=== PATIENT | female | born 1940 | race Caucasian/White ===

== ENCOUNTER 2020-10-29 17:01 | Observation (INO) ==
[2020-10-29] MEDS ORDERED: OPTIRAY 320 125ml IV ONE (17:19)
--- NOTE | 2020-10-29 17:32 | CT Scan Report ---
CT SCAN OF THE BRAIN WITHOUT IV CONTRAST CLINICAL HISTORY: Strokelike symptoms. COMPARISON STUDY: No priors. TECHNIQUE: Unenhanced axial CT scan of the brain is performed from the vertex to the skull base. A do se lowering technique was utilized adhering to the principles of ALARA. FINDINGS: Brain parenchyma: There is age-related involutional change. There is no hemorrhage, mass effect, or e vidence of acute territorial ischemia by CT criteria. Olson-white matter differentiation is preserved. No extra-axial fluid collection is seen. Ventricles, sulci, cisterns: Prominent secondary to involutional change. Intracranial vasculature: There is atherosclerotic calcification of the cavernous carotid arteries. Calvarium: Unremarkable. Sinuses and mastoids: The visualized paranasal sinuses are clear. The mastoid air cells are well pneu matized. Orbits: The bony orbits are grossly intact. IMPRESSION: There is no hemorrhage, mass effect, or evidence of acute territorial ischemia by CT delfino toledo. ACT 112: Negative or not required by law. Electronically signed by: Ian Simmons M.D. 10/29/2020 5:31 PM
[2020-10-29 17:33] LABS: Basophils # (auto) 0.03 K/uL (0-0.2); Basophils % (auto) 0.5 %; Eosinophils # (auto) 0.08 K/uL (0-0.5); Eosinophils % (auto) 1.3 %; Hemoglobin 13.2 g/dL (12.0-16.0); Lymphocytes % (auto) 41.5 %; Mean Corpuscular Hemoglobin 31.3 pg (25-34); Mean Corpuscular Volume 94.8 fL (80-100); Mean Platelet Volume 9.8 fL (7.4-10.4); Monocytes # (auto) 0.69 K/uL (0.11-0.59); Neutrophils # (auto) 2.86 K/uL (1.4-6.5); Neutrophils % (auto) 45.7 %; Platelet Count 258 K/uL (130-400); RDW Coefficient of Variation 12.5 % (11.5-14.5); RDW Standard Deviation 42.9 fL (36.4-46.3); Red Blood Count 4.22 M/uL (4.2-5.4); White Blood Count 6.26 K/uL (4.8-10.8)
--- NOTE | 2020-10-29 17:38 | Emergency Department Note ---
Impression & Plan TIA (transient ischemic attack) ED Provider Note NAME: LILIYA VIDAL AGE: 80 SEX: F : 1940 ARRIVES VIA: Walk-In INFORMANT: Patient, the patient's daughter ED PROVIDER(S): Simon Gooden DO CHIEF COMPLAINT: Strokelike symptoms HPI: The patient is an 80-year-old female who presented to the emergency department by triage for an evaluation of strokelike symptoms. The patient was on the phone with a business call earlier today. She states at approximately 3 15-3 30 she started having symptoms of confusion. She states she was having difficulty remembering things that she would normally remember. She had difficulty speaking. She presented to the emergency department with her daughter who states that she still has symptoms but the patient herself states that she feels much better. The patient denies having any headache. She denies having any nausea or vomiting. She denies having any recent trauma. The goran ent has had no recent traveling or fever. She states she was not necessarily under any significant stress. The patient states she had one episode similar to this with an eye issue where she felt like a curtain was coming down over her eye. She states she went to see an eye doctor and was told she may have had a slight stroke. ROS: See above HPI for pertinent positives & negatives. A total of 10 systems reviewed and were otherwise negative. PAST MEDICAL HISTORY: See Below PAST SURGICAL HISTORY: See Below FAMILY HISTORY: See Below SOCIAL HISTORY: See Below HOME MEDICATIONS: See Below ALLERGIES: See Below VITALS: See Below PHYSICAL EXAMINATION: GENERAL: The patient is awake and alert. The patient is somewhat anxious appearing. EYES: The conjunctivae are clear. The pupils are round and reactive. EARS, NOSE, MOUTH AND THROAT: The nose is without any evidence of any deformity. NECK: The neck is nontender and supple. RESPIRATORY: Normal respiratory effort is noted there is no evidence of wheezing rhonchi or rales CARDIOVASCULAR: Regular rate and rhythm noted there no murmurs rubs or gallops normal S1 normal S2. GASTROINTESTINAL: The abdomen is soft. Abdomen is nontender. MUSCULOSKELETAL/EXTREMITIES: There is no evidence of gross deformity full range of motion is noted in the hips and shoulders. SKIN: There is no obvious evidence of any rash. There are no petechiae, pallor or cyanosis noted. NEUROLOGIC: Patient is awake and oriented to person place and situation. Strength was symmetric. Automation Qtp Tester strength was symmetric. There is no facial droop. The patient is able to hold each leg off the bed for greater than 5 seconds. MEDICAL DECISION MAKING: The patient is an 80-year-old female who presented to the emergency department for an evaluation of altered mental status and possible strokelike symptoms. The patient's symptoms rapidly improved while she was in the emergency department. She was made a stroke alert upon arrival but I did not discuss her case with the telestroke neurologist. The patient's symptoms rapidly improved and she did not appear to be a candidate for TPA. She also was not found to have a large vessel occlusion. I discussed the patient's laboratory and radiographic studies with her. Her symptom is more worrisome for possible strokelike symptoms. For this reason I discussed her case with the on-call [facility] hospitalist. They have agreed to evaluate the patient in the emergency department for further management and disposition. Triage Nursing notes reviewed. Prior medical records reviewed Vital Signs: reviewed and remarkable for hypertension. Differential diagnosis: Infection, hypoglycemia, electrolyte abnormalities, overdose, toxicologic, cardiac sources, intracerebral event, neurologic, trauma, as well as other pathologies. ER treatment provided: See below Diagnostics interpreted by me: ECG: EKG was obtained in the emergency department. My interpretation is normal sinus rhythm at 80 bpm. There was no ectopy. There was no acute ST segment abnormalities noted. No previous tracing was available. Cardiac Monitoring: An order was placed for continuous cardiac monitoring. The monitor shows a rate of 72 bpm with sinus rhythm. Laboratory studies: As stated above and show below. Imaging studies: See below Consultation(s): I discussed this case with Dr. Gatica who is on-call for the [facility]. They will evaluate the patient in the emergency department. Past Med/Surg History Medical History History of depression History of hypertension Hx of gastroesophageal reflux (GERD) Prediabetes PVC (premature ventricular contraction) Surgical History History of hysterectomy History of knee surgery S/P tonsillectomy Family History Mother , age 71 of congestive heart failure. CHF (congestive heart failure) Father , in early 80s of Parkinson's disease Primary Parkinson's disease Social History Smoking Status: Never smoker Hx Alcohol Use: No Hx Substance Use: No Preferred Language: [place] Communication Ability: Effective Pediatric Nurse Required: No Beliefs That Will Affect Care: None Current Living Situation: Personal Care Facility Current Living Situation Comment: Independent living facility Feels Safe at Home: Yes Assistive Devices: Glasses and Hearing Aid - Bilateral Allergies Allergies Allergy/AdvReac Type Severity Reaction Status Date / Time clindamycin Allergy Severe Gastrointestinal Verified 10/29/20 17:48 Upset erythromycin base Allergy Severe Gastrointestinal Verified 10/29/20 17:48 Upset Home Meds Home Medications Medication Instructions Recorded Confirmed acyclovir 400 mg tablet 400 mg PO DAILY PRN 10/29/20 10/29/20 amoxicillin 500 mg capsule 2,000 mg PO DAILY PRN 10/29/20 10/29/20 ascorbic acid (vitamin C) 1,000 mg 1,000 mg PO DAILY 10/29/20 10/29/20 tablet,extended release (Vitamin C ER) bupropion HCl 100 mg tablet 50 mg PO DAILY 10/29/20 10/29/20 calcium carbonate-vitamin D3 600 1 tab PO DAILY 10/29/20 10/29/20 mg-125 unit tablet cholecalciferol (vitamin D3) 50 50 mcg PO DAILY 10/29/20 10/29/20 mcg (2,000 unit) capsule (Vitamin D3) denosumab 60 mg/mL subcutaneous 60 mg SUBCUT .EVERY 6 MONTHS 10/29/20 10/29/20 syringe (Prolia) famotidine 20 mg tablet 20 mg PO BID 10/29/20 10/29/20 fluticasone propionate 50 2 spray INTRANASAL DAILY 10/29/20 10/29/20 mcg/actuation nasal spray,suspension (Flonase Allergy Relief) glucosamine HCl 1,500 mg tablet 1,500 mg PO DAILY 10/29/20 10/29/20 losartan 25 mg tablet 25 mg PO DAILY 10/29/20 10/29/20 metronidazole 0.75 % lotion 1 applic TOPICAL BID PRN 10/29/20 10/29/20 mirabegron 25 mg tablet,extended 25 mg PO QPM 10/29/20 10/29/20 release 24 hr (Myrbetriq) multivitamin 1 tab PO DAILY 10/29/20 10/29/20 triamcinolone acetonide 0.1 % 1 applic TOPICAL DAILY PRN 10/29/20 10/29/20 topical cream Previous Rx's Medication Instructions Recorded atorvastatin 20 mg tablet 20 mg PO DAILY 30 Days #30 tab 10/30/20 clopidogrel 75 mg tablet 75 mg PO DAILY 30 Days #30 tab 10/30/20 Results & Data (ED) Vital Signs Vital Signs - 24 hr 10/29/20 17:32 10/29/20 17:55 Pulse Rate 112 H Pulse Rate [Apical] 79 Respiratory Rate 10 L 18 Blood Pressure 184/122 H Blood Pressure [Left Arm] 159/71 H Blood Pressure Mean 142 Blood Pressure Mean [Left Arm] 100 Pulse Oximetry 98 Oxygen Delivery Method Room Air Home Medications Current Medication List: was personally reviewed by me Laboratory Data Attestation: I reviewed the patient's lab results. Result diagrams: 10/29/20 17:16 10/29/20 18:24 Lab Results 10/29/20 10/29/20 10/29/20 Range/Units 17:16 17:16 17:16 WBC 6.26 (4.8-10.8) K/uL RBC 4.22 (4.2-5.4) M/uL Hgb 13.2 (12.0-16.0) g/dL Hct 40.0 (37-47) % MCV 94.8 (80-100) fL MCH 31.3 (25-34) pg MCHC 33.0 (32-36) g/dL RDW Std Deviation 42.9 (36.4-46.3) fL RDW Coeff of Fernando 12.5 (11.5-14.5) % Plt Count 258 (130-400) K/uL MPV 9.8 (7.4-10.4) fL Immature Gran % (Auto) 0.0 % Neut % (Auto) 45.7 % Lymph % (Auto) 41.5 % Keith % (Auto) 11.0 % Eos % (Auto) 1.3 % Baso % (Auto) 0.5 % Neut # (Auto) 2.86 (1.4-6.5) K/uL Lymph # (Auto) 2.60 (1.2-3.4) K/uL Keith # (Auto) 0.69 H (0.11-0.59) K/uL Eos # (Auto) 0.08 (0-0.5) K/uL Baso # (Auto) 0.03 (0-0.2) K/uL Immature Gran # (Auto) 0.00 (0.00-0.02) K/uL PT 10.4 (9.0-12.0) Seconds INR 1.0 (0.9-1.1) APTT 24.8 (21.0-31.0) Seconds PTT Ratio 0.9 Sodium Cancelled Potassium Cancelled Chloride Cancelled Carbon Dioxide Cancelled Anion Gap Cancelled BUN Cancelled Creatinine Cancelled Est Cr Clr Drug Dosing Cancelled Est GFR ( Amer) Cancelled Est GFR (Non-Af Amer) Cancelled BUN/Creatinine Ratio Cancelled Glucose Cancelled POC Glucose (70-99) mg/dl Calcium Cancelled Magnesium Cancelled Total Bilirubin Cancelled AST Cancelled ALT Cancelled Alkaline Phosphatase Cancelled Troponin I Cancelled Total Protein Cancelled Albumin Cancelled Globulin Cancelled Albumin/Globulin Ratio Cancelled 10/29/20 10/29/20 Range/Units 17:16 18:24 WBC (4.8-10.8) K/uL RBC (4.2-5.4) M/uL Hgb (12.0-16.0) g/dL Hct (37-47) % MCV (80-100) fL MCH (25-34) pg MCHC (32-36) g/dL RDW Std Deviation (36.4-46.3) fL RDW Coeff of Fernando (11.5-14.5) % Plt Count (130-400) K/uL MPV (7.4-10.4) fL Immature Gran % (Auto) % Neut % (Auto) % Lymph % (Auto) % Keith % (Auto) % Eos % (Auto) % Baso % (Auto) % Neut # (Auto) (1.4-6.5) K/uL Lymph # (Auto) (1.2-3.4) K/uL Keith # (Auto) (0.11-0.59) K/uL Eos # (Auto) (0-0.5) K/uL Baso # (Auto) (0-0.2) K/uL Immature Gran # (Auto) (0.00-0.02) K/uL PT (9.0-12.0) Seconds INR (0.9-1.1) APTT (21.0-31.0) Seconds PTT Ratio Sodium 139 Potassium 4.6 Chloride 110 H Carbon Dioxide 25 Anion Gap 4.0 BUN 19 H Creatinine 1.16 Est Cr Clr Drug Dosing 37.7 Est GFR ( Amer) 51.5 Est GFR (Non-Af Amer) 44.4 BUN/Creatinine Ratio 16.5 Glucose 118 H POC Glucose 142 H (70-99) mg/dl Calcium 9.4 Magnesium 2.9 H Total Bilirubin 0.5 AST 18 ALT 21 Alkaline Phosphatase 36 L Troponin I < 0.015 Total Protein 7.3 Albumin 4.0 Globulin 3.3 Albumin/Globulin Ratio 1.2 Administered Medications Discontinued Medications Aspirin (Aspirin 81 Mg Ectab) 81 mg PO DAILY [facility] Stop: 11/29/20 08:59 Last Admin: 10/30/20 09:29 Dose: 81 mg Documented by: [id number] Atorvastatin Calcium (Atorvastatin 40 Mg Tab) 40 mg PO [facility] Stop: 11/29/20 08:59 Last Admin: 10/30/20 09:28 Dose: 40 mg Documented by: [id number] Bupropion HCl (Bupropion Hcl 100 Mg Tablet) 50 mg PO DAILY [facility] Stop: 11/29/20 08:59 Last Admin: 10/30/20 09:28 Dose: 50 mg Documented by: [id number] Clopidogrel Bisulfate (Clopidogrel Bisulfate 75 Mg Tab) 75 mg PO [facility] Stop: 11/29/20 08:59 Last Admin: 10/30/20 09:27 Dose: 75 mg Documented by: [id number] Famotidine (Famotidine 20 Mg Tab) 20 mg PO DAILY [facility] Stop: 11/28/20 22:59 Last Admin: 10/30/20 09:27 Dose: 20 mg Documented by: [id number] Admin: 10/29/20 23:45 Dose: Not Given Documented by: [id number] Fluticasone Propionate (Fluticasone Propionate Na Spr 16 Gm Btl) 2 sprays NA DA CANDIDA [facility] Stop: 11/29/20 08:59 Last Admin: 10/30/20 09:27 Dose: 2 sprays Documented by: [id number] Gadobutrol (Gadobutrol 30ml Vial) 7 ml IV ONCE ONE Stop: 10/30/20 13:27 Last Admin: 10/30/20 13:26 Dose: 7 ml Documented by: [id number] Lorazepam (Ativan) 0.5 mg in 1 mls @ 0.5 mls/min IV ONE PRN PRN Reason: Anxiety/claustrophobia Last Admin: 10/30/20 12:16 Dose: 0.5 mls/min Documented by: [id number] Ioversol (Optiray 320 125ml) 120 ml IV ONCE ONE Stop: 10/29/20 17:20 Last Admin: 10/29/20 17:19 Dose: 120 ml Documented by: [id number] Mirabegron (Mirabegron Er 25 Mg Tab) 25 mg PO QPM [facility] Stop: 11/28/20 22:59 Last Admin: 10/29/20 23:45 Dose: 25 mg Documented by: [id number] Imaging Data Radiologist's Impression: Chest X-Ray 10/29/20 17:09 SINGLE VIEW CHEST CLINICAL HISTORY: Strokelike symptoms. FINDINGS: An AP, portable, upright chest radiograph is compared to study dated 05/28/2020. The examination is degraded by portable technique and patient rotation. The heart is enlarged noting atherosclerotic calcification of the thoracic aorta. The pulmonary vasculature is noncongested. Chronic interstitial thickening is similar to previous. There is mild bibasilar scarring/atelectasis. The lungs and pleural spaces are otherwise clear. No pneumothorax is seen. The skeletal structures are osteopenic. The bony thorax is grossly intact. IMPRESSION: Mild cardiomegaly with no active disease in the chest. ACT 112: Negative or not required by law. Electronically signed by: Ian Simmons M.D. 10/29/2020 5:[address] 10/29/20 17:09 CT SCAN OF THE BRAIN WITHOUT IV CONTRAST CLINICAL HISTORY: Strokelike symptoms. COMPARISON STUDY: No priors. TECHNIQUE: Unenhanced axial CT scan of the brain is performed from the vertex to the skull base. A dose lowering technique was utilized adhering to the principles of ALARA. FINDINGS: Brain parenchyma: There is age-related involutional change. There is no hemorrhage, mass effect, or evidence of acute territorial ischemia by CT cr iteria. Olson-white matter differentiation is preserved. No extra-axial fluid collection is seen. Ventricles, sulci, cisterns: Prominent secondary to involutional change. Intracranial vasculature: There is atherosclerotic calcification of the cavern ous carotid arteries. Calvarium: Unremarkable. Sinuses and mastoids: The visualized paranasal sinuses are clear. The mastoid air cells are well pneumatized. Orbits: The bony orbits are grossly intact. IMPRESSION: There is no hemorrhage, mass effect, or evidence of acute territorial ischemia by CT criteria. ACT 112: Negative or not required by law. Electronically signed by: Ian Simmons M.D. 10/29/2020 5:31 PM Head CTA 10/29/20 17:09 CT ANGIOGRAM OF THE BRAIN; CT ANGIOGRAM OF THE NECK CLINICAL HISTORY: Strokelike symptoms. COMPARISON STUDY: Unenhanced CT of the brain performed concurrently on 10/29/2020. Carotid artery ultrasound dated 10/07/2020. Thyroid ultrasound dated 10/18/2020. TECHNIQUE: Following the IV administration of 120 of Optiray 320, CT angiogram of the head and neck was performed from the aortic arch to the vertex. Images are reviewed in the axial, sagittal, and coronal planes. 3-D MIPS images are created and assessed. IV contrast was administered without complication. All measurements were calculated based on NASCET criteria. A dose lowering technique was utilized adhering to the principles of ALARA. CT DOSE: 1476.68 mGy.cm FINDINGS: Brain parenchyma: There is age-related involutional change. There is no hemorrhage, mass effect, or evidence of acute territorial ischemia by CT criteria. There is no evidence of enhancing mass lesion on the angiogram phase images. The ventricles, sulci, and cisterns are prominent secondary to involutional change. Olson-white matter differentiation is preserved. No extra- axial fluid collection is seen. Thoracic aorta: There is mild atherosclerotic calcification of the thoracic aorta. Visualized portions of the thoracic aorta are normal in caliber. The aor tic arch demonstrates standard 3-vessel anatomy. Right carotid arterial system: The right common carotid artery is widely patent, as are the right internal and external carotid arteries. Mild calcified plaque is noted in the carotid bulb. Left carotid arterial system: The left common carotid artery is widely patent, as are the left internal and external carotid arteries. Minimal calcified plaque is seen in the carotid bulb. Vertebral arteries: The vertebral arteries are widely patent bilaterally and codominant. Subclavian arteries: Widely patent bilaterally. Intracranial vasculature: There is atherosclerotic calcification of the carotid bulbs. The internal carotid arteries are patent at the skull base, as are the anterior and middle cerebral arteries bilaterally. The vertebrobasilar system and posterior cerebral arteries are widely patent. The intracranial left vertebral artery is dominant. There is no aneurysm, high-grade stenosis, or focal vessel cut off seen throughout the intracranial circulation. Jugular veins: Patent bilaterally. Dural sinuses: Patent. Lung apices: Partially visualized upper lobe lung parenchyma appears clear. Soft tissues: The visualized pharyngeal soft tissues are normal in appearance noting angiographic phase technique. The oropharyngeal airway appears widely patent. A 2.2 cm nodule is noted in the right lobe of the thyroid gland. This is better assessed on the recent thyroid ultrasound. A subcentimeter nodule is seen on the left. The salivary glands are normal in appearance. No cervical lymphadenopathy is seen. Skeletal structures: The skeletal structures are osteopenic. The calvarium a ppears intact. The cervical spine is within normal limits. No lytic or blastic lesion is seen. Orbits: The bony orbits are intact. Orbital contents are normal as visualized. Sinuses and mastoids: The paranasal sinuses are clear. The mastoid air cells are well pneumatized. IMPRESSION: 1. There is no evidence of hemorrhage, mass effect, or acute territorial ischemia noting angiographic phase technique. 2. Unremarkable CT angiogram of the brain. 3. Unremarkable CT angiogram of the neck. ACT 112: Negative or not required by law. Electronically signed by: Ian Simmons M.D. 10/29/2020 5:42 PM Neck CTA 10/29/20 17:09 CT ANGIOGRAM OF THE BRAIN; CT ANGIOGRAM OF THE NECK CLINICAL HISTORY: Strokelike symptoms. COMPARISON STUDY: Unenhanced CT of the brain performed concurrently on 10/29/2020. Carotid artery ultrasound dated 10/07/2020. Thyroid ultrasound dated 10/18/2020. TECHNIQUE: Following the IV administration of 120 of Optiray 320, CT angiogram of the head and neck was performed from the aortic arch to the vertex. Images are reviewed in the axial, sagittal, and coronal planes. 3-D MIPS images are created and assessed. IV contrast was administered without complication. All measurements were calculated based on NASCET criteria. A dose lowering technique was utilized adhering to the principles of ALARA. CT DOSE: 1476.68 mGy.cm FINDINGS: Brain parenchyma: There is age-related involutional change. There is no hemorrhage, mass effect, or evidence of acute territorial ischemia by CT criteria. There is no evidence of enhancing mass lesion on the angiogram phase images. The ventricles, sulci, and cisterns are prominent secondary to involutional change. Olson-white matter differentiation is preserved. No extra- axial fluid collection is seen. Thoracic aorta: There is mild atherosclerotic calcification of the thoracic aorta. Visualized portions of the thoracic aorta are normal in caliber. The aortic arch demonstrates standard 3-vessel anatomy. Right carotid arterial system: The right common carotid artery is widely patent, as are the right internal and external carotid arteries. Mild calcified plaque is noted in the carotid bulb. Left carotid arterial system: The left common carotid artery is widely patent, as are the left internal and external carotid arteries. Minimal calcified plaque is seen in the carotid bulb. Vertebral arteries: The vertebral arteries are widely patent bilaterally and codominant. Subclavian arteries: Widely patent bilaterally. Intracranial vasculature: There is atherosclerotic calcification of the carotid bulbs. The internal carotid arteries are patent at the skull base, as are the anterior and middle cerebral arteries bilaterally. The vertebrobasilar system and posterior cerebral arteries are widely patent. The intracranial left vertebral artery is dominant. There is no aneurysm, high-grade stenosis, or focal vessel cut off seen throughout the intracranial circulation. Jugular veins: Patent bilaterally. Dural sinuses: Patent. Lung apices: Partially visualized upper lobe lung parenchyma appears clear. Soft tissues: The visualized pharyngeal soft tissues are normal in appearance noting angiographic phase technique. The oropharyngeal airway appears widely patent. A 2.2 cm nodule is noted in the right lobe of the thyroid gland. This is better assessed on the recent thyroid ultrasound. A subcentimeter nodule is seen on the left. The salivary glands are normal in appearance. No cervical lymphadenopathy is seen. Skeletal structures: The skeletal structures are osteopenic. The calvarium appears intact. The cervical spine is within normal limits. No lytic or blastic lesion is seen. Orbits: The bony orbits are intact. Orbital contents are normal as visualized. Sinuses and mastoids: The paranasal sinuses are clear. The mastoid air cells are well pneumatized. IMPRESSION: 1. There is no evidence of hemorrhage, mass effect, or acute territorial ischemia noting angiographic phase technique. 2. Unremarkable CT angiogram of the brain. 3. Unremarkable CT angiogram of the neck. ACT 112: Negative or not required by law. Electronically signed by: Ian Simmons M.D. 10/29/2020 5:42 PM Discharge Plan Visit Data Chief Complaint: Stroke/CVA Symptoms Stated Complaint: MEMORY LOSS, HIGH BP, VISION CHANGED ED Provider: Simon Gooden Discharge Problem: TIA (transient ischemic attack) Patient Disposition: Admitted As Inpatient Condition: Good Discharge Instructions Interventions: ED Discharge Assessment Last Done: 10/29/20 22:13
--- NOTE | 2020-10-29 17:43 | CT Scan Report ---
CT ANGIOGRAM OF THE BRAIN; CT ANGIOGRAM OF THE NECK CLINICAL HISTORY: Strokelike symptoms. COMPARISON STUDY: Unenhanced CT of the brain performed concurrently on 10/29/2020. Carotid artery ult rasound dated 10/07/2020. Thyroid ultrasound dated 10/18/2020. TECHNIQUE: Following the IV administration of 120 of Optiray 320, CT angiogram of the head and neck w as performed from the aortic arch to the vertex. Images are reviewed in the axial, sagittal, and wong nal planes. 3-D MIPS images are created and assessed. IV contrast was administered without complicati on. All measurements were calculated based on NASCET criteria. A dose lowering technique was utilize d adhering to the principles of ALARA. CT DOSE: 1476.68 mGy.cm FINDINGS: Brain parenchyma: There is age-related involutional change. There is no hemorrhage, mass effect, or e vidence of acute territorial ischemia by CT criteria. There is no evidence of enhancing mass lesion o n the angiogram phase images. The ventricles, sulci, and cisterns are prominent secondary to involuti onal change. Olson-white matter differentiation is preserved. No extra-axial fluid collection is seen. Thoracic aorta: There is mild atherosclerotic calcification of the thoracic aorta. Visualized portion s of the thoracic aorta are normal in caliber. The aortic arch demonstrates standard 3-vessel anatomy . Right carotid arterial system: The right common carotid artery is widely patent, as are the right int ernal and external carotid arteries. Mild calcified plaque is noted in the carotid bulb. Left carotid arterial system: The left common carotid artery is widely patent, as are the left sports broadcasting internship al and external carotid arteries. Minimal calcified plaque is seen in the carotid bulb. Vertebral arteries: The vertebral arteries are widely patent bilaterally and codominant. Subclavian arteries: Widely patent bilaterally. Intracranial vasculature: There is atherosclerotic calcification of the carotid bulbs. The internal c arotid arteries are patent at the skull base, as are the anterior and middle cerebral arteries bilate rally. The vertebrobasilar system and posterior cerebral arteries are widely patent. The intracranial left vertebral artery is dominant. There is no aneurysm, high-grade stenosis, or focal vessel cut of f seen throughout the intracranial circulation. Jugular veins: Patent bilaterally. Dural sinuses: Patent. Lung apices: Partially visualized upper lobe lung parenchyma appears clear. Soft tissues: The visualized pharyngeal soft tissues are normal in appearance noting angiographic pha se technique. The oropharyngeal airway appears widely patent. A 2.2 cm nodule is noted in the right l obe of the thyroid gland. This is better assessed on the recent thyroid ultrasound. A subcentimeter n odule is seen on the left. The salivary glands are normal in appearance. No cervical lymphadenopathy is seen. Skeletal structures: The skeletal structures are osteopenic. The calvarium appears intact. The cervic al spine is within normal limits. No lytic or blastic lesion is seen. Orbits: The bony orbits are intact. Orbital contents are normal as visualized. Sinuses and mastoids: The paranasal sinuses are clear. The mastoid air cells are well pneumatized. IMPRESSION: 1. There is no evidence of hemorrhage, mass effect, or acute territorial ischemia noting angiographic phase technique. 2. Unremarkable CT angiogram of the brain. 3. Unremarkable CT angiogram of the neck. ACT 112: Negative or not required by law. Electronically signed by: Ian Simmons M.D. 10/29/2020 5:42 PM
[2020-10-29 17:44] LABS: Partial Thromboplastin Ratio 0.9; Partial Thromboplastin Time 24.8 Seconds (21.0-31.0); Prothrombin Time 10.4 Seconds (9.0-12.0)
--- NOTE | 2020-10-29 17:53 | XRay Report ---
SINGLE VIEW CHEST CLINICAL HISTORY: Strokelike symptoms. FINDINGS: An AP, portable, upright chest radiograph is compared to study dated 05/28/2020. The examina tion is degraded by portable technique and patient rotation. The heart is enlarged noting atheroscler otic calcification of the thoracic aorta. The pulmonary vasculature is noncongested. Chronic intersti tial thickening is similar to previous. There is mild bibasilar scarring/atelectasis. The lungs and p leural spaces are otherwise clear. No pneumothorax is seen. The skeletal structures are osteopenic. T he bony thorax is grossly intact. IMPRESSION: Mild cardiomegaly with no active disease in the chest. ACT 112: Negative or not required by law. Electronically signed by: Ian Simmons M.D. 10/29/2020 5:52 PM
[2020-10-29 18:49] LABS: Alanine Aminotransferase 21 U/L (12-78); Aspartate Aminotransferase 18 U/L (15-37); BUN Creatinine Ratio 16.5 (10-20); Blood Urea Nitrogen 19 mg/dl (7-18); Calcium 9.4 mg/dl (8.5-10.1); Carbon Dioxide 25 mmol/L (21-32); Chloride 110 mmol/L (98-107); Creatinine Clr Calc Pharmacy 37.7 ml/min; Est GFR (African American) 51.5 ml/min; Est GFR (Non-African American) 44.4 ml/min; Glucose 118 mg/dl (70-99); Magnesium 2.9 mg/dl (1.8-2.4); Potassium 4.6 mmol/L (3.5-5.1); Sodium 139 mmol/L (136-145)
--- NOTE | 2020-10-29 18:52 | History & Physical Report ---
Date of Service October 29, 2020 Assessment & Plan (1) Stroke-like episode: Plan: 80-year-old female with history of hypertension, prediabetes presenting with episode of left-sided weakness, confusion and word finding issues concerning for TIA. Patient symptoms have resolved completely and she is now back to baseline. Neurological exam is unremarkable. Work-up thus far unrevealing to include normal CT head as well as normal CTA head and neck. Patient reports episode possibly consistent with amaurosis fugax last February for which she was started on aspirin 81 mg daily. This medication has been on hold due to thyroid biopsy. Observation to medical floor with telemetry monitoring Neuro exam every 4 hours, NIH stroke scale daily Check MRI brain Check 2D echo with bubble study Check hemoglobin A1c and lipid panel We will continue aspirin 81 mg daily as well as start Plavix 75 mg daily - Start atorvastatin 40 mg p.o. daily -PT/OT assessment Neurology assessment appreciated (2) History of hypertension: Plan: Chronic. Blood pressure elevated upon arrival, now improved at 141/75 Hold antihypertensive agents to allow for permissive hypertension Continue to monitor (3) History of depression: Plan: Chronic. Stable. Continue bupropion 50 mg p.o. daily (4) Hx of gastroesophageal reflux (GERD): Plan: Chronic. Stable. Continue Pepcid 20 mg p.o. twice daily Plan: FENHep-Lock, electrolytes within normal limits, AHA diet as tolerated ProphylaxisSCDs to bilateral lower extremities CodeDNR/DNI per discussion with patient PA dispositionobservation to medical telemetry History of Present Illness Chief Complaint: Strokelike symptoms Primary Care Provider: [facility] Sheyla Fish is a pleasant 80yo female with history of hypertension, GERD, prediabetes and depression presenting with possible TIA. Patient was in her usual state of health this afternoon around 1500 she was on the phone with her corporate associate attorney. Around 15:15 she developed difficulty word finding, confusion, was unable to use her phone and search her contacts and could not figure out her filing cabinet. Patient with history of hypoglycemia for which she takes glucose tablets and she took 1 at this time with minimal relief. She also checked her blood pressure during the incident which was elevated at 180/105 with a repeat of 175/80. She told he corporate associate attorney that she thought she was having a TIA and hung up the phone. She then called her daughter who noted that she was having some difficulties with speech and instructed her mother to call the nurses station. The nurse at [facility] told the patient that she needed to go to the ER. Patient hypertensive upon arrival at 195/. She reports she was still having word finding difficulty as well as not thinking clearly. Additionally, she reports some left-sided numbness and weakness of her upper and lower extremity. During my encounter her symptoms completely resolved and she felt back to normal. No additional complaints. Specifically she denies headache, visual changes, chest pain, palpitations, shortness of breath, abdominal pain, nausea, vomiting, diarrhea, constipation. Patient would like to go home. She reports that last February she had an episode where it seemed as if "a curtain was being drawn over her left eye". After this she was started on a daily aspirin. Her aspirin had recently been put on hold due to a thyroid aspiration. Allergies Allergy/AdvReac Type Severity Reaction Status Date / Time clindamycin Allergy Severe Gastrointestinal Verified 10/29/20 17:48 Upset erythromycin base Allergy Severe Gastrointestinal Verified 10/29/20 17:48 Upset Home Medications Medication Instructions Recorded Confirmed Type acyclovir 400 mg tablet 400 mg PO DAILY PRN 10/29/20 10/29/20 History amoxicillin 500 mg capsule 2,000 mg PO DAILY PRN 10/29/20 10/29/20 History ascorbic acid (vitamin C) 1,000 mg 1,000 mg PO DAILY 10/29/20 10/29/20 History tablet,extended release (Vitamin C ER) atenolol 50 mg tablet 25 mg PO DAILY 10/29/20 10/29/20 History bupropion HCl 100 mg tablet 50 mg PO DAILY 10/29/20 10/29/20 History calcium carbonate-vitamin D3 600 1 tab PO DAILY 10/29/20 10/29/20 History mg-125 unit tablet cholecalciferol (vitamin D3) 50 50 mcg PO DAILY 10/29/20 10/29/20 History mcg (2,000 unit) capsule (Vitamin D3) denosumab 60 mg/mL subcutaneous 60 mg SUBCUT .EVERY 6 MONTHS 10/29/20 10/29/20 History syringe (Prolia) famotidine 20 mg tablet 20 mg PO BID 10/29/20 10/29/20 History fluticasone propionate 50 2 spray INTRANASAL DAILY 10/29/20 10/29/20 History mcg/actuation nasal spray,suspension (Flonase Allergy Relief) glucosamine HCl 1,500 mg tablet 1,500 mg PO DAILY 10/29/20 10/29/20 History losartan 25 mg tablet 25 mg PO DAILY 10/29/20 10/29/20 History metronidazole 0.75 % lotion 1 applic TOPICAL BID PRN 10/29/20 10/29/20 History mirabegron 25 mg tablet,extended 25 mg PO QPM 10/29/20 10/29/20 History release 24 hr (Myrbetriq) multivitamin 1 tab PO DAILY 10/29/20 10/29/20 History triamcinolone acetonide 0.1 % 1 applic TOPICAL DAILY PRN 10/29/20 10/29/20 History topical cream Past Med/Surg History Medical History (Updated 10/29/20 @ 21:48 by Marce Gatica DO) History of depression History of hypertension Hx of gastroesophageal reflux (GERD) Prediabetes PVC (premature ventricular contraction) Surgical History (Updated 10/29/20 @ 21:45 by Marce Gatica DO) History of hysterectomy History of knee surgery S/P tonsillectomy Social History Smoking Status: Never smoker Preferred Language: Libyan Feels Safe at Home: Yes Review of Systems Review of Systems: All systems reviewed & are unremarkable except as noted in HPI & below Physical Exam Physical Exam: General: patient resting comfortably, NAD, non-toxic in appearance, AA&O x 4 Skin: warm, dry, intact, no rashes or lesions HEENT: NC/AT, PERRL, EOMI, anicteric sclera, conjunctiva without injection, external ear normal to inspection and nontender, nares patent, moist mucus membranes, dentition intact, no oropharyngeal lesions, neck supple, trachea midline, no LAD, no thyromegaly, no JVD Heart: +S1/S2, regular, no m/r/g Lungs: equal air entry bilaterally, no rales/rhonchi/wheezes Abd: +BS, soft, NT/ND, no masses/organomegaly/ascites Ext: warm, 2+ pulses in UE/LE bilaterally, no clubbing/cyanosis or edema Neuro: nonfocal, patient AA&O x 4, speech intact, no facial droop, moving all extremities on command with equal strength 5/5 Results & Data Results & Data ([facility]) Vital Signs (Past 12 Hours) Vital Signs Temp Pulse Pulse Resp BP BP Pulse Ox 10/29/20 17:55 79 18 159/71 H 98 10/29/20 17:05 36.2 C L 70 20 195/91 H 99 Laboratory Results Laboratory Results WBC 6.26 K/uL (4.8-10.8) 10/29/20 17:16 RBC 4.22 M/uL (4.2-5.4) 10/29/20 17:16 Hgb 13.2 g/dL (12.0-16.0) 10/29/20 17:16 Hct 40.0 % (37-47) 10/29/20 17:16 MCV 94.8 fL (80-100) 10/29/20 17:16 MCH 31.3 pg (25-34) 10/29/20 17:16 MCHC 33.0 g/dL (32-36) 10/29/20 17:16 RDW Std Deviation 42.9 fL (36.4-46.3) 10/29/20 17:16 RDW Coeff of Fernando 12.5 % (11.5-14.5) 10/29/20 17:16 Plt Count 258 K/uL (130-400) 10/29/20 17:16 MPV 9.8 fL (7.4-10.4) 10/29/20 17:16 Immature Gran % (Auto) 0.0 % 10/29/20 17:16 Neut % (Auto) 45.7 % 10/29/20 17:16 Lymph % (Auto) 41.5 % 10/29/20 17:16 Mineral % (Auto) 11.0 % 10/29/20 17:16 Eos % (Auto) 1.3 % 10/29/20 17:16 Baso % (Auto) 0.5 % 10/29/20 17:16 Neut # (Auto) 2.86 K/uL (1.4-6.5) 10/29/20 17:16 Lymph # (Auto) 2.60 K/uL (1.2-3.4) 10/29/20 17:16 Mineral # (Auto) 0.69 K/uL (0.11-0.59) H 10/29/20 17:16 Eos # (Auto) 0.08 K/uL (0-0.5) 10/29/20 17:16 Baso # (Auto) 0.03 K/uL (0-0.2) 10/29/20 17:16 Immature Gran # (Auto) 0.00 K/uL (0.00-0.02) 10/29/20 17:16 PT 10.4 Seconds (9.0-12.0) 10/29/20 17:16 INR 1.0 (0.9-1.1) 10/29/20 17:16 APTT 24.8 Seconds (21.0-31.0) 10/29/20 17:16 PTT Ratio 0.9 10/29/20 17:16 Sodium 139 mmol/L (136-145) 10/29/20 18:24 Potassium 4.6 mmol/L (3.5-5.1) 10/29/20 18:24 Chloride 110 mmol/L (98-107) H 10/29/20 18:24 Carbon Dioxide 25 mmol/L (21-32) 10/29/20 18:24 Anion Gap 4.0 (3-11) 10/29/20 18:24 BUN 19 mg/dl (7-18) H 10/29/20 18:24 Creatinine 1.16 mg/dl (0.6-1.2) 10/29/20 18:24 Est Cr Clr Drug Dosing 37.7 ml/min 10/29/20 18:24 Est GFR ( Amer) 51.5 ml/min 10/29/20 18:24 Est GFR (Non-Af Amer) 44.4 ml/min 10/29/20 18:24 BUN/Creatinine Ratio 16.5 (10-20) 10/29/20 18:24 Glucose 118 mg/dl (70-99) H 10/29/20 18:24 POC Glucose 142 mg/dl (70-99) H 10/29/20 17:16 Calcium 9.4 mg/dl (8.5-10.1) 10/29/20 18:24 Magnesium 2.9 mg/dl (1.8-2.4) H 10/29/20 18:24 Total Bilirubin 0.5 mg/dl (0.2-1) 10/29/20 18:24 AST 18 U/L (15-37) 10/29/20 18:24 ALT 21 U/L (12-78) 10/29/20 18:24 Alkaline Phosphatase 36 U/L (45-117) L 10/29/20 18:24 Troponin I < 0.015 ng/ml (0-0.045) 10/29/20 18:24 Total Protein 7.3 gm/dl (6.4-8.2) 10/29/20 18:24 Albumin 4.0 gm/dl (3.4-5.0) 10/29/20 18:24 Globulin 3.3 gm/dl (2.5-4.0) 10/29/20 18:24 Albumin/Globulin Ratio 1.2 (0.9-2) 10/29/20 18:24 COVID-19 Eval Order Covid19 at [facility] 10/29/20 19:23 SARS-CoV-2 (PCR) NEGATIVE (Negative) 10/29/20 19:23 Impressions Chest X-Ray 10/29/20 17:09 SINGLE VIEW CHEST CLINICAL HISTORY: Strokelike symptoms. FINDINGS: An AP, portable, upright chest radiograph is compared to study dated 05/28/2020. The examination is degraded by portable technique and patient rotation. The heart is enlarged noting atherosclerotic calcification of the thoracic aorta. The pulmonary vasculature is noncongested. Chronic interstitial thickening is similar to previous. There is mild bibasilar scarring/atelectasis. The lungs and pleural spaces are otherwise clear. No pneumothorax is seen. The skeletal structures are osteopenic. The bony thorax is grossly intact. IMPRESSION: Mild cardiomegaly with no active disease in the chest. ACT 112: Negative or not required by law. Electronically signed by: Ian Simmons M.D. 10/29/2020 5:[address] 10/29/20 17:09 CT SCAN OF THE BRAIN WITHOUT IV CONTRAST CLINICAL HISTORY: Strokelike symptoms. COMPARISON STUDY: No priors. TECHNIQUE: Unenhanced axial CT scan of the brain is performed from the vertex to the skull base. A dose lowering technique was utilized adhering to the principles of ALARA. FINDINGS: Brain parenchyma: There is age-related involutional change. There is no hemorrhage, mass effect, or evidence of acute territorial ischemia by CT criteria. Olson-white matter differentiation is preserved. No extra-axial fluid collection is seen. Ventricles, sulci, cisterns: Prominent secondary to involutional change. Intracranial vasculature: There is atherosclerotic calcification of the cavernous carotid arteries. Calvarium: Unremarkable. Sinuses and mastoids: The visualized paranasal sinuses are clear. The mastoid air cells are well pneumatized. Orbits: The bony orbits are grossly intact. IMPRESSION: There is no hemorrhage, mass effect, or evidence of acute territorial ischemia by CT criteria. ACT 112: Negative or not required by law. Electronically signed by: Ian Simmons M.D. 10/29/2020 5:31 PM Head CTA 10/29/20 17:09 CT ANGIOGRAM OF THE BRAIN; CT ANGIOGRAM OF THE NECK CLINICAL HISTORY: Strokelike symptoms. COMPARISON STUDY: Unenhanced CT of the brain performed concurrently on . Carotid artery ultrasound dated 10/07/2020. Thyroid ultrasound dated 10/18/2020. TECHNIQUE: Following the IV administration of 120 of Optiray 320, CT angiogram of the head and neck was performed from the aortic arch to the vertex. Images are reviewed in the axial, sagittal, and coronal planes. 3-D MIPS images are created and assessed. IV contrast was administered without complication. All measurements were calculated based on NASCET criteria. A dose lowering technique was utilized adhering to the principles of ALARA. CT DOSE: 1476.68 mGy.cm FINDINGS: Brain parenchyma: There is age-related involutional change. There is no hemorrhage, mass effect, or evidence of acute territorial ischemia by CT criteria. There is no evidence of enhancing mass lesion on the angiogram phase images. The ventricles, sulci, and cisterns are prominent secondary to involutional change. Olson-white matter differentiation is preserved. No extra- axial fluid collection is seen. Thoracic aorta: There is mild atherosclerotic calcification of the thoracic aorta. Visualized portions of the thoracic aorta are normal in caliber. The aortic arch demonstrates standard 3-vessel anatomy. Right carotid arterial system: The right common carotid artery is widely patent, as are the right internal and external carotid arteries. Mild calcified plaque is noted in the carotid bulb. Left carotid arterial system: The left common carotid artery is widely patent, as are the left internal and external carotid arteries. Minimal calcified plaque is seen in the carotid bulb. Vertebral arteries: The vertebral arteries are widely patent bilaterally and codominant. Subclavian arteries: Widely patent bilaterally. Intracranial vasculature: There is atherosclerotic calcification of the carotid bulbs. The internal carotid arteries are patent at the skull base, as are the anterior and middle cerebral arteries bilaterally. The vertebrobasilar system and posterior cerebral arteries are widely patent. The intracranial left vertebral artery is dominant. There is no aneurysm, high-grade stenosis, or focal vessel cut off seen throughout the intracranial circulation. Jugular veins: Patent bilaterally. Dural sinuses: Patent. Lung apices: Partially visualized upper lobe lung parenchyma appears clear. Soft tissues: The visualized pharyngeal soft tissues are normal in appearance noting angiographic phase technique. The oropharyngeal airway appears widely patent. A 2.2 cm nodule is noted in the right lobe of the thyroid gland. This is better assessed on the recent thyroid ultrasound. A subcentimeter nodule is seen on the left. The salivary glands are normal in appearance. No cervical lymphadenopathy is seen. Skeletal structures: The skeletal structures are osteopenic. The calvarium appears intact. The cervical spine is within normal limits. No lytic or blastic lesion is seen. Orbits: The bony orbits are intact. Orbital contents are normal as visualized. Sinuses and mastoids: The paranasal sinuses are clear. The mastoid air cells are well pneumatized. IMPRESSION: 1. There is no evidence of hemorrhage, mass effect, or acute territorial ischemia noting angiographic phase technique. 2. Unremarkable CT angiogram of the brain. 3. Unremarkable CT angiogram of the neck. ACT 112: Negative or not required by law. Electronically signed by: Ian Simmons M.D. 10/29/2020 5:42 PM Neck CTA 10/29/20 17:09 CT ANGIOGRAM OF THE BRAIN; CT ANGIOGRAM OF THE NECK CLINICAL HISTORY: Strokelike symptoms. COMPARISON STUDY: Unenhanced CT of the brain performed concurrently on 10/29/2020. Carotid artery ultrasound dated 10/07/2020. Thyroid ultrasound dated 10/18/2020. TECHNIQUE: Following the IV administration of 120 of Optiray 320, CT angiogram of the head and neck was performed from the aortic arch to the vertex. Images are reviewed in the axial, sagittal, and coronal planes. 3-D MIPS images are created and assessed. IV contrast was administered without complication. All measurements were calculated based on NASCET criteria. A dose lowering technique was utilized adhering to the principles of ALARA. CT DOSE: 1476.68 mGy.cm FINDINGS: Brain parenchyma: There is age-related involutional change. There is no hemorrhage, mass effect, or evidence of acute territorial ischemia by CT criteria. There is no evidence of enhancing mass lesion on the angiogram phase images. The ventricles, sulci, and cisterns are prominent secondary to involutional change. Olson-white matter differentiation is preserved. No extra- axial fluid collection is seen. Thoracic aorta: There is mild atherosclerotic calcification of the thoracic aorta. Visualized portions of the thoracic aorta are normal in caliber. The aortic arch demonstrates standard 3-vessel anatomy. Right carotid arterial system: The right common carotid artery is widely patent, as are the right internal and external carotid arteries. Mild calcified plaque is noted in the carotid bulb. Left carotid arterial system: The left common carotid artery is widely patent, as are the left internal and external carotid arteries. Minimal calcified plaque is seen in the carotid bulb. Vertebral arteries: The vertebral arteries are widely patent bilaterally and codominant. Subclavian arteries: Widely patent bilaterally. Intracranial vasculature: There is atherosclerotic calcification of the carotid bulbs. The internal carotid arteries are patent at the skull base, as are the anterior and middle cerebral arteries bilaterally. The vertebrobasilar system and posterior cerebral arteries are widely patent. The intracranial left vertebral artery is dominant. There is no aneurysm, high-grade stenosis, or focal vessel cut off seen throughout the intracranial circulation. Jugular veins: Patent bilaterally. Dural sinuses: Patent. Lung apices: Partially visualized upper lobe lung parenchyma appears clear. Soft tissues: The visualized pharyngeal soft tissues are normal in appearance noting angiographic phase technique. The oropharyngeal airway appears widely patent. A 2.2 cm nodule is noted in the right lobe of the thyroid gland. This is better assessed on the recent thyroid ultrasound. A subcentimeter nodule is seen on the left. The salivary glands are normal in appearance. No cervical lymphadenopathy is seen. Skeletal structures: The skeletal structures are osteopenic. The calvarium appears intact. The cervical spine is within normal limits. No lytic or blastic lesion is seen. Orbits: The bony orbits are intact. Orbital contents are normal as visualized. Sinuses and mastoids: The paranasal sinuses are clear. The mastoid air cells are well pneumatized. IMPRESSION: 1. There is no evidence of hemorrhage, mass effect, or acute territorial ischemia noting angiographic phase technique. 2. Unremarkable CT angiogram of the brain. 3. Unremarkable CT angiogram of the neck. ACT 112: Negative or not required by law. Electronically signed by: Ian Simmons M.D. 10/29/2020 5:42 PM ECG Additional Comments: EKG with normal sinus rhythm at 80 bpm, normal axis, W[place] = 196, QRS = 80, QTC = 433, no acute ischemic changes, no evidence of LVH Code Status & VTE Plan VTE Prophylaxis Plan VTE Prophylaxis will be ordered: Yes PG Care Time/CCT Total # of Minutes Spent Total Time Spent with Patient: Total time spent is greater than 50% in coordination of care (as documented) at patient's floor/unit and/or counseling patient: Coding Level of Care Code INT OBSERVATION CARE 50M LVL 2 Diagnoses Stroke-like episode R29.90 History of depression Z86.59 History of hypertension Z86.79 Hx of gastroesophageal reflux (GERD) Z87.19
[2020-10-29 18:54] LABS: Albumin Globulin Ratio 1.2 (0.9-2); Alkaline Phosphatase 36 U/L (45-117); Bilirubin,Total 0.5 mg/dl (0.2-1); Globulin 3.3 gm/dl (2.5-4.0); Total Protein 7.3 gm/dl (6.4-8.2); Troponin I < 0.015 ng/ml (0-0.045)
[2020-10-29] MEDS ORDERED: ACETAMINOPHEN 325 MG TAB PO PRN (22:38)
[2020-10-29] MEDS ORDERED: MIRABEGRON ER 25 MG TAB PO SCH (23:00)
[2020-10-29] MEDS: FAMOTIDINE 20 MG TAB PO SCH (23:45)
--- NOTE | 2020-10-30 07:25 | Hospitalist Progress Note ---
Date of Service October 30, 2020 Assessment & Plan (1) Stroke-like episode: Plan: from [facility] 80-year-old female with history of hypertension, prediabetes presenting with episode of left-sided weakness, confusion and word finding issues concerning for TIA. Patient symptoms have resolved completely and she is now back to baseline. Neurological exam is unremarkable. Work-up thus far unrevealing to include normal CT head as well as normal CTA head and neck. Patient reports episode possibly consistent with amaurosis fugax last February for which she was started on aspirin 81 mg daily. This medication has been on hold due to thyroid biopsy. Observation to medical floor with telemetry monitoring Neuro exam every 4 hours, NIH stroke scale daily Check MRI brain Check 2D echo with bubble study Check hemoglobin A1c and lipid panel We will continue aspirin 81 mg daily as well as start Plavix 75 mg daily - Start atorvastatin 40 mg p.o. daily -PT/OT assessment Neurology assessment appreciated (2) History of hypertension: Plan: Chronic. Blood pressure elevated upon arrival, now improved at 141/75 Hold antihypertensive agents to allow for permissive hypertension Continue to monitor (3) History of depression: Plan: Chronic. Stable. Continue bupropion 50 mg p.o. daily (4) Hx of gastroesophageal reflux (GERD): Plan: Chronic. Stable. Continue Pepcid 20 mg p.o. twice daily Plan: FENHep-Lock, electrolytes within normal limits, AHA diet as tolerated ProphylaxisSCDs to bilateral lower extremities CodeDNR/DNI per discussion with patient PA dispositionobservation to medical telemetry Admission and Anticipated Discharge Date Admission Date: October 29, 2020 Subjective + chronic chills. No SOB. No confusion. Denies recurrence of any stroke-like symptoms. Review of Systems Review of Systems: All systems reviewed & are unremarkable except as noted in HPI & below Physical Exam Physical Exam: General: A&Ox4. NAD. Cooperative. HEENT: Atraumatic, normocephalic. EOMI Pulm: CTAB. -wheezes, -rales, -rhonchi. Symmetrical chest rise. No respiratory distress. Cardiac: RRR, -mrg. 1+ Abdominal: Nontender, nondistended, soft. Neuro: CN II-XII ok. No facial droop. Normal finger to nose. No motor/sensation deficit. No dysarthria/aphasia. Results & Data Results & Data ([place]) Vital Signs (Past 12 Hours) Vital Signs most recent vitals wnl. HTNsive to 190s systolic x2 overnight. Temp Pulse Pulse Resp BP BP Pulse Ox 10/30/20 04:13 82 10/30/20 03:06 36.9 C 64 18 129/70 96 10/30/20 01:09 36.8 C 72 190/83 H 98 10/29/20 21:00 72 18 141/75 H 10/29/20 20:30 69 20 139/83 10/29/20 20:00 72 15 145/99 H 10/29/20 19:40 70 19 171/85 H Laboratory Results no new labs
[2020-10-30] MEDS ORDERED: LORazepam 0.5 MG/1 ML VIAL IV PRN (07:36)
[2020-10-30] MEDS ORDERED: ATORVASTATIN 40 MG TAB PO SCH (09:00)
[2020-10-30] MEDS ORDERED: FLUTICASONE PROPIONATE NA SPR 16 GM BTL SCH (09:00)
[2020-10-30] MEDS ORDERED: ASPIRIN 81 MG ECTAB PO SCH (09:00)
[2020-10-30] MEDS ORDERED: CLOPIDOGREL BISULFATE 75 MG TAB PO SCH (09:00)
[2020-10-30] MEDS ORDERED: buPROPion HCl 100 MG TABLET PO SCH (09:00)
[2020-10-30 09:21] LABS: Chol HDL Ratio 3; Cholesterol 172 mg/dl (0-200); HDL Cholesterol 66 mg/dl; LDL Cholesterol Calculated 94 mg/dl; Triglycerides 58 mg/dl (0-150); VLDL Cholesterol 12 mg/dl
[2020-10-30] MEDS: FAMOTIDINE 20 MG TAB PO SCH (09:27)
[2020-10-30 09:58] LABS: Estimated Average Glucose 108 mg/dl; Hemoglobin A1C 5.4 % (4.5-5.6)
--- NOTE | 2020-10-30 10:12 | Neurology Consultation ---
Date of Consultation October 30, 2020 Assessment & Plan (1) Confusion state: (2) Speech abnormality: (3) Hypertensive urgency: This patient presented October 29 with some nonspecific confusion /cognitive issues that came on suddenly. There may have been a word-finding difficulty but she did not have any other speech issue. There was concern about some left-sided weakness in the ER but currently on examination, she has no focal deficits, encephalopathy, or meningeal signs. CT angiography of the head and neck were unremarkable, echocardiogram is unremarkable and a CT scan of the head showed no acute changes. Clinically, this may represent a small stroke or TIA but her blood pressure was markedly elevated in the emergency room and the symptoms she displayed may be just related to acute hypertension. Her blood pressure is back to normal currently. Patient was on aspirin but stopped over the last week because of her procedure. It gave her bruising. Hemoglobin A1c was normal at 5.4. Triglycerides were normal at 58 and cholesterol 172. Recommendations: 1. MRI of the brain to evaluate for stroke. 2. Continue Plavix for now. 3. Discontinue aspirin. 4. Increase activity as able. 5. control blood pressure as you are doing, aiming for a mean arterial pressure of 95-100. 6. her glucose and lipids are within normal limits and I do not see an indication for statin at this time Overall, I spent a total of 65 minutes with this case, including review of re cords, direct evaluation the patient at bedside, and discussion of the case with the patient at bedside, RN at bedside, and Dr. Brice including differential diagnosis and treatment options. History of Present Illness Reason for Consultation: patient is an 80-year-old, who I was asked to see at the request of Dr. Fry, for neurologic consultation regarding TIA versus stroke. Requesting Physician: Dr. Fry Attending Physician: Sahil Brice, History of Present Illness patient has been in fairly good health over the years and does not have a histo ry of cigarette smoking, hypertension, dyslipidemia, diabetes, or heart disease. She does have some PVCs and takes atenolol. In February of 2021 she had an episode where a late curtain came down over her left eye and she had no vision. This lasted 5 minutes and then faded away. She has not had an episode like that since. In early September because of that history her family doctor put her on 81 mg aspirin tablet daily. In the last week or so because of a thyroid aspiration procedure she stop the aspirin and has not taken it since. On the afternoon of October 29, around 1530, while talking on the telephone, she noted that she could recall things. She had the decreased ability to use her phone and the decreased ability to use a computer. She had no pain, headache, fatigue, weakness, numbness, balance problem, or speech problem. This persisted and she told her daughter. She was then taken to the emergency room. Apparently she did not have slurred speech but felt more like confused and in a fog. She arrived the emergency room at 5:05 p.m. with a temperature of 36.2, pulse 70 and regular, respiratory rate 20 in comfortable, blood pressure 195/91, and then repeated at 184/122, with an O2 saturation of 99%. she may have had some left-sided weakness noted in the emergency room he but she did not feel she was week. CBC and Chem profile were unremarkable. Chest x-ray was unremarkable. CT scan of the head showed no acute changes. CT angiography of the head and neck were unremarkable. She was given 81 mg aspirin +75 mg clopidogrel. This morning she feels slightly confused but seems otherwise back to baseline. Blood pressure was 129/70 this morning. Allergies Allergy/AdvReac Type Severity Reaction Status Date / Time clindamycin Allergy Severe Gastrointestinal Verified 10/29/20 17:48 Upset erythromycin base Allergy Severe Gastrointestinal Verified 10/29/20 17:48 Upset Home Medications Medication Instructions Recorded Confirmed Type acyclovir 400 mg tablet 400 mg PO DAILY PRN 10/29/20 10/29/20 History amoxicillin 500 mg capsule 2,000 mg PO DAILY PRN 10/29/20 10/29/20 History ascorbic acid (vitamin C) 1,000 mg 1,000 mg PO DAILY 10/29/20 10/29/20 History tablet,extended release (Vitamin C ER) atenolol 50 mg tablet 25 mg PO DAILY 10/29/20 10/29/20 History bupropion HCl 100 mg tablet 50 mg PO DAILY 10/29/20 10/29/20 History calcium carbonate-vitamin D3 600 1 tab PO DAILY 10/29/20 10/29/20 History mg-125 unit tablet cholecalciferol (vitamin D3) 50 50 mcg PO DAILY 10/29/20 10/29/20 History mcg (2,000 unit) capsule (Vitamin D3) denosumab 60 mg/mL subcutaneous 60 mg SUBCUT .EVERY 6 MONTHS 10/29/20 10/29/20 History syringe (Prolia) famotidine 20 mg tablet 20 mg PO BID 10/29/20 10/29/20 History fluticasone propionate 50 2 spray INTRANASAL DAILY 10/29/20 10/29/20 History mcg/actuation nasal spray,suspension (Flonase Allergy Relief) glucosamine HCl 1,500 mg tablet 1,500 mg PO DAILY 10/29/20 10/29/20 History losartan 25 mg tablet 25 mg PO DAILY 10/29/20 10/29/20 History metronidazole 0.75 % lotion 1 applic TOPICAL BID PRN 10/29/20 10/29/20 History mirabegron 25 mg tablet,extended 25 mg PO QPM 10/29/20 10/29/20 History release 24 hr (Myrbetriq) multivitamin 1 tab PO DAILY 10/29/20 10/29/20 History triamcinolone acetonide 0.1 % 1 applic TOPICAL DAILY PRN 10/29/20 10/29/20 History topical cream Patient History Medical History History of depression History of hypertension Hx of gastroesophageal reflux (GERD) Prediabetes PVC (premature ventricular contraction) Surgical History History of hysterectomy History of knee surgery S/P tonsillectomy Family History Mother , age 71 of congestive heart failure. CHF (congestive heart failure) Father , in early 80s of Parkinson's disease Primary Parkinson's disease Social History Smoking Status: Never smoker Hx Alcohol Use: No Hx Substance Use: No Preferred Language: Swedish Communication Ability: Effective Scientific Database Curator Required: No Beliefs That Will Affect Care: None Current Living Situation: Personal Care Facility Current Living Situation Comment: Independent living facility Feels Safe at Home: Yes Assistive Devices: None Review of Systems Constitutional: no fever, no fatigue and no weakness Eyes: no diplopia, no eye pain and no worsening vision Ear, Nose, Mouth, Throat: no ear pain, no tinnitus, no hearing loss, no dizziness, no snoring, no hoarseness and no dysphagia Respiratory: no cough and no dyspnea Cardiovascular: no chest pain, no palpitations and no lightheadedness Gastrointestinal: no abdominal pain, no nausea and no vomiting Genitourinary: no dysuria, no urinary frequency and no urinary incontinence Musculoskeletal: no back pain, no neck pain, no radicular pain, no joint pain and no myalgia Integumentary: no rash and no lesions Neurologic: no gait abnormality, no localized weakness, no generalized weakness, no tingling, no numbness, no tremor(s), no abnormal movements, no headache(s), no abnormal speech, no confusion and no memory loss Psychiatric: no depression, no irritability, no anxiety, no difficulty concentrating, no confusion and no hallucinations Endocrine: no fatigue and no flushing Hematologic / Lymphatic: no easy bleeding and no easy bruising Allergy / Immunological: no urticaria and no problem reported Exam (Neuro) Physical Exam: The patient is right-handed. The patient is awake, alert, and attentive. Speech is normal without any aphasia or dysarthria. The patient can name objects, repeat phrases, and has normal spontaneous speech. Mentation and thought processes are intact, with orientation to person, place and time, and normal fund of knowledge. Attention and concentration are normal. Mood and affect are normal and appropriate. General appearance and grooming are normal. Short and long-term memory are intact. Pupils are 3 mm bilaterally and reactive to light. Extraocular eye muscles are intact without nystagmus. Visual acuity and visual noguera seem normal grossly to confrontation. There are no deficits to sensation in the face in all 3 distributions of the fifth cranial nerve bilaterally. Corneal reflexes are positive bilaterally. Facial strength and symmetry was normal bilaterally. Hearing seems normal [place] aterally. Palate moves well without asymmetry. There is normal sternocleidomastoid and trapezius (shoulder shrug) strength bilaterally. Tongue is midline with good strength bilaterally. Neck has a full range of motion without discomfort. There are no cervical bruits bilaterally. There are no cranial or ocular bruits. Heart is without murmur. There is a regular rhythm and rate. Cervical, thoracic, and lumbar spine are nontender to palpation. Gait was not tested but stance sitting up in chair is quite normal. With outstretched arms there is no drift. There are no resting, postural, or action tremors. There is no ataxia with finger to nose testing. There is good facility in the hands. No other abnormal involuntary movements are noted. Motor strength is 5/5 diffusely in the arms bilaterally including deltoids, biceps, triceps, brachioradialis, wrist flexors and extensors, event lighting specialist, and intrinsic hand muscles. Motor strength is 5/5 diffusely in the legs bilaterally including hip flexors, quadriceps, hamstrings, gastrocnemius, tibialis anterior, tibialis posterior, and Peroneii muscles. Toe extensors are normal and there is good bulk in the extensor digitorum brevis muscles bilaterally. The limbs have good tone without rigidity or spasticity. There is no atrophy noted in the muscles. Muscle bulk is normal, there is no tenderness to palpation, no myotonia to percussion, and no fasciculations seen. Sensory examination is intact to touch and pin throughout all 4 limbs diffusely. Reflexes are 1/4 in the biceps, triceps, brachioradialis, quadriceps, and Achilles tendons bilaterally. There is no clonus bilaterally. Toes are downgoing with plantar stimulation bilaterally. Peripheral pulses are present and of normal quality distally in all 4 limbs. There is no peripheral edema noted in the limbs. Results & Data ([facility]) Vital Signs (Past 12 Hours) Vital Signs Temp Pulse Pulse Resp BP Pulse Ox 10/30/20 04:13 82 10/30/20 03:06 36.9 C 64 18 129/70 96 10/30/20 01:09 36.8 C 72 190/83 H 98 PG Care Time/CCT Total # of Minutes Spent Total Time Spent with Patient: Total time spent is greater than 50% in coordination of care (as documented) at patient's floor/unit and/or counseling patient: Coding Level of Care Code 52575 Initial Inpt Care Lvl 3 Diagnoses Speech abnormality R47.9 Confusion state F44.89 Hypertensive urgency I16.0 Time Spent (min) 65
--- NOTE | 2020-10-30 11:24 | Discharge Summary ---
Date of Service October 30, 2020 Admission HPI Per Admitting Provider Sheyla Fish is a pleasant 80yo female with history of hypertension, GERD, prediabetes and depression presenting with possible TIA. Patient was in her usual state of health this afternoon around 1500 she was on the phone with her regulatory attorney. Around 15:15 she developed difficulty word finding, confusion, was unable to use her phone and search her contacts and could not figure out her filing cabinet. Patient with history of hypoglycemia for which she takes glucose tablets and she took 1 at this time with minimal relief. She also checked her blood pressure during the incident which was elevated at 180/105 wit h a repeat of 175/80. She told he regulatory attorney that she thought she was having a TIA and hung up the phone. She then called her daughter who noted that she was having some difficulties with speech and instructed her mother to call the nurses station. The nurse at [facility] told the patient that she needed to go to the ER. Patient hypertensive upon arrival at 195/91. She reports she was still having word finding difficulty as well as not thinking clearly. Additionally, she reports some left-sided numbness and weakness of her upper and lower extremity. During my encounter her symptoms completely resolved and she felt back to normal. No additional complaints. Specifically she denies headache, visual changes, chest pain, palpitations, shortness of breath, abdominal pain, nausea, vomiting, diarrhea, constipation. Patient would like to go home. She reports that last February she had an episode where it seemed as if "a curtain was being drawn over her left eye". After this she was started on a daily aspirin. Her aspirin had recently been put on hold due to a thyroid aspiration. Admission Exam Per Admitting Provider General: patient resting comfortably, NAD, non-toxic in appearance, AA&O x 4 Skin: warm, dry, intact, no rashes or lesions HEENT: NC/AT, PERRL, EOMI, anicteric sclera, conjunctiva without injection, external ear normal to inspection and nontender, nares patent, moist mucus membranes, dentition intact, no oropharyngeal lesions, neck supple, trachea midline, no LAD, no thyromegaly, no JVD Heart: +S1/S2, regular, no m/r/g Lungs: equal air entry bilaterally, no rales/rhonchi/wheezes Abd: +BS, soft, NT/ND, no masses/organomegaly/ascites Ext: warm, 2+ pulses in UE/LE bilaterally, no clubbing/cyanosis or edema Neuro: nonfocal, patient AA&O x 4, speech intact, no facial droop, moving all extremities on command with equal strength 5/5 Principal Diagnosis TIA Discharge Exam General: A&Ox4. NAD. Cooperative. HEENT: Atraumatic, normocephalic. EOMI Pulm: CTAB. -wheezes, -rales, -rhonchi. Symmetrical chest rise. No respiratory distress. Cardiac: RRR, -mrg. 1+ Abdominal: Nontender, nondistended, soft. Neuro: CN II-XII ok. No facial droop. Normal finger to nose. No motor/sensation deficit. No dysarthria/aphasia. Discharge Data Allergies Allergy/AdvReac Type Severity Reaction Status Date / Time clindamycin Allergy Severe Gastrointestinal Verified 10/29/20 17:48 Upset erythromycin base Allergy Severe Gastrointestinal Verified 10/29/20 17:48 Upset Consultations 10/29/20 18:20 ED Decision to Admit Stat 10/30/20 08:18 Consult Neurology Routine Ordered Studies 10/29/20 17:16 10/29/20 18:24 Chest X-Ray 10/29/20 17:09 IMPRESSION: Mild cardiomegaly with no active disease in the chest. Head CT 10/29/20 17:09 IMPRESSION: There is no hemorrhage, mass effect, or evidence of acute territorial ischemia by CT criteria. Head CTA 10/29/20 17:09 IMPRESSION: 1. There is no evidence of hemorrhage, mass effect, or acute territorial ischemia noting angiographic phase technique. 2. Unremarkable CT angiogram of the brain. 3. Unremarkable CT angiogram of the neck. Neck CTA 10/29/20 17:09 IMPRESSION: 1. There is no evidence of hemorrhage, mass effect, or acute territorial ischemia noting angiographic phase technique. 2. Unremarkable CT angiogram of the brain. 3. Unremarkable CT angiogram of the neck. Brain MRI 10/30/20 12:11 IMPRESSION: 1. No acute intracranial findings. 2. No intracranial mass or pathologic enhancement. 3. White matter T2 hyperintense foci suggestive of small vessel disease. Hospital Course (1) Stroke-like episode: 80-year-old female with history of hypertension, prediabetes presenting with episode of left-sided weakness, confusion and word finding issues, diagnosed as TIA as symptoms resolved. Neurological exam is unremarkable. Work-up w/ normal CT head as well as normal CTA head and neck and MRI brain. TTE normal EF and no shunting. Patient reports episode possibly consistent with amaurosis fugax last February for which she was started on aspirin 81 mg daily, which was temporarily interrupted prior to recent thyroid biopsy. Follow up w/ PCP at [facility] within 1 week. - per neuro recs, patient will be continued on Plavix, baby ASA discontinued. Plavix duration to be determined by PCP - starting on atorvastatin 20. Nonfasting TG 58, cholesterol 172, LDL 94, HDL 66. LDL goal 70 because treating TIA as cardiovascular equivalent - negative head imaging as per above - recommended patient to defer procedures that would interrupt the Plavix for 2- 3 months because time of highest reoccurrence of TIA (2) History of hypertension: - BPs up to 190s systolic this admission likely 2/2 autoregulation from TIA vs stress - Final BP prior to discharge was 89/51. Discontinued home atenolol 25mg from meds list. Recheck BP in 1 week at PCP's. Will defer to PCP to restart atenolol if needed (3) Abnormal thyroid biopsy: - 10/22/20 thyroid nodule biopsy: Atypia of undetermined significance/follicular lesion of undetermined significance is seen. 10/18/20 ultrasound: Large slightly hyperechoic TI-RADS 4 lesion within mid pole of the right thyroid lobe. - see above (4) History of depression: Chronic. Stable. Continue bupropion 50 mg p.o. daily (5) Hx of gastroesophageal reflux (GERD): Chronic. Stable. Continue Pepcid 20 mg p.o. twice daily Total Time Total Time Spent Total Time Spent (In Minutes): <30 Discharge Plan Discharge Items Patient Disposition: Home - Self-Care Reason For Visit: LEFT SIDED WEAKNESS Discharge Diagnosis: transient ischemic attack Condition on Discharge: Good Activity: Per Instructions section Non-emergency contact: Primary Care Provider Call non-emergency contact if: you have any medication questions, your symptoms worsen and you have a fever Follow-up/Referrals: Chantelle Lagos [Primary Care Provider] - (PCP follow up for hospital discharge within 1 week) Diet: Heart Healthy Addtl Attending Provider Instructions: You were admitted to [facility] for transient ischemic attack (ministroke). Your symptoms (confusion, left sided weakness, speech problems) have completely resolved. MRI of your brain was reviewed and did not show new concerning findings. The neurologist at the hospital saw you as well. You will be started on a medium strength cholesterol medication called atorvastatin 20 mg once a day. You have also been started on a medication called Plavix. Take Plavix daily. Your primary care doctor will reevaluate in a few mon ths regarding how long to continue this medication. These 2 medications have been sent to [facility]. Stop taking daily baby aspirin because taking it at the same time as Plavix can increase bleeding risk. You mentioned that you have upcoming cataract surgery and thyroid biopsy. We discussed that it would be ideal to defer these procedures for 2-3 months because during this time period thereis highest chance of reoccurence of TIA and thus the Plavix would ideally not be interrupted during this time. I have temporarily stopped your home blood pressure medicine atenolol 25 mg daily because your blood pressure was low (89/51) just prior to discharge. Have your primary care doctor recheck your blood pressure. He/she can restart this medication if needed. Please see Chantelle's primary care doctor within 1 week for routine hospital discharge follow up. Notify your physician if you develop worsening symptoms, fever/chills, weakness, passing out, chest pain, shortness of breath, or other symptoms of concern. Visit the emergency department if symptoms concerning or urgent. 10/30 covid test was NEGATIVE. Pending Studies at Discharge: No Stand-Alone Forms: My [facility] [place] ([employer]), Smoking Cessation Medications and DC Order Prescriptions: New clopidogrel 75 mg tablet 75 mg PO DAILY 30 Days Qty: 30 RF: 1 atorvastatin 20 mg tablet 20 mg PO DAILY 30 Days Qty: 30 RF: 1 Continued famotidine 20 mg tablet 20 mg PO BID RF: 0 losartan 25 mg tablet 25 mg PO DAILY RF: 0 Prolia 60 mg/mL syringe 60 mg SUBCUT .EVERY 6 MONTHS RF: 0 Myrbetriq 25 mg tablet extended release 24 hr 25 mg PO QPM RF: 0 multivitamin Tablet 1 tab PO DAILY RF: 0 Vitamin C 1,000 mg Tablet Extended Release 1,000 mg PO DAILY RF: 0 bupropion HCl 100 mg Tablet 50 mg PO DAILY RF: 0 fluticasone propionate [Flonase Allergy Relief] 50 mcg/actuation Fletcher,Suspension 2 spray INTRANASAL DAILY RF: 0 cholecalciferol (vitamin D3) [Vitamin D3] 50 mcg (2,000 unit) Capsule 50 mcg PO DAILY RF: 0 amoxicillin 500 mg capsule 2,000 mg PO DAILY PRN (Reason: Prophylaxis) RF: 0 acyclovir 400 mg Tablet 400 mg PO DAILY PRN (Reason: Cold Sores) RF: 0 triamcinolone acetonide 0.1 % Cream 1 applic TOPICAL DAILY PRN (Reason: Rash) RF: 0 metronidazole 0.75 % Lotion 1 applic TOPICAL BID PRN (Reason: acne rosacea) RF: 0 calcium carbonate-vitamin D3 600-125 mg-unit Tablet 1 tab PO DAILY RF: 0 glucosamine HCl 1,500 mg Tablet 1,500 mg PO DAILY RF: 0 Discontinued atenolol 50 mg Tablet 25 mg PO DAILY RF: 0 Discharge Orders: Discharge Order (Routine); Ordered 10/30/20 Ordered By: Endy Burleson Admission Data Admit Date/Time: 10/29/20 18:51 Attending Provider: Sahil Brice Admit Provider: Marce Gatica Primary Care Provider: Chantelle Lagos Other Providers: Marce Gatica ; Joseluis Wei Other Interventions: Discharge Summary Assessment (RN) Last Done: 10/30/20 15:58 Supervising Physician Co-Signing Physician Notes I personally examined the patient and verified all loredo points of history and exam, discussed case, and agree with decision making with Dr Burleson. Feeling better, feeling up to going home. Would like to go home. Extensive discussion on symptomsshe had left sided weakness/numbness probably numbness more than weakness, as well as difficulty with word finding that all totally resolved. She notes normally her blood pressure runs quite low, so the high blood pressures were extremely atypical for her. She feels better now. Family present who asked good questions as well, we answered all to the best of our ability. Case discussed with neurology earlier today as well. Vitals noted, in general she is awake and alert pleasant no distress. HEENT normocephalic atraumatic mucous members moist. Breathing unlabored no accessory muscle use good effort. Skin shows no rashes no pallor or icterus. Neuro without any focal deficits at this time. TIAsmall vessel mechanism most likely, versus less likely but kind of impossible to rule out that she had a hypertensive urgency. Given that she normally runs low, and is back to around her baseline range of blood pressure, and that her symptoms seem to fitting with a TIA, i more strongly suspect TIA with autoregulation than hypertensive crisis. At this point need to manage both the same anywayagree with Plavix, after discussion with patient on risks and benefitsstatin. Outpatient follow-up. Given that her blood pressures are now low, definitely would not want to escalate antihypertensive therapy. Stable for discharge, wants to go home, outpatient follow-up.
[2020-10-30] MEDS ORDERED: GADOBUTROL 30ML VIAL IV ONE (13:26)
--- NOTE | 2020-10-30 14:32 | Magnetic Resonance Report ---
MRI OF THE BRAIN WITHOUT AND WITH IV CONTRAST CLINICAL HISTORY: ?TIA COMPARISON STUDY: Head CT and CTA of the head October 29, 2020. TECHNIQUE: Utilizing a 1.5 Kalpana magnet and dedicated coil, multiplanar, multiecho imaging of the br ain was performed pre and postcontrast administration. IV administration of 7 mL of Gadavist contras t was uneventful. FINDINGS: There are no foci of restricted diffusion to suggest acute infarct. No acute intracranial h emorrhage, midline shift or mass effect is present. Ventricular system is unremarkable. Basal cistern s are patent. There are no extra-axial collections. Flow-voids for the major intracranial vessels are present. There is no intracranial mass or pathologic enhancement. Numerous white matter T2 hyperinte nse foci suggest small vessel disease. Calvarial signal is normal. IMPRESSION: 1. No acute intracranial findings. 2. No intracranial mass or pathologic enhancement. 3. White matter T2 hyperintense foci suggestive of small vessel disease. ACT 112: Negative or not required by law. Electronically signed by: Ronn Giron M.D. 10/30/2020 2:31 PM
[2020-10-30 15:33] VITALS: BP 89/51; PULSE 70; TEMP 97.7; O2SAT 92
--- NOTE | 2020-10-30 18:13 | Billing Data ---
Date of Service October 30, 2020 Coding Level of Care Code 47071 OBS Care - Discharge
--- NOTE | 2020-11-01 10:22 | Electrocardiogram Report ---
Test Reason : Blood Pressure : / mmHG Vent. Rate : 080 BPM Atrial Rate : 080 BPM P-R Int : 196 ms QRS Dur : 080 ms QT Int : 376 ms P-R-T Axes : 052 -20 032 degrees QTc Int : 433 ms Normal sinus rhythm Normal ECG No previous ECGs available Confirmed by Aaron Lopez ([id number]) on 11/01/2020 10:22:00 AM Referred By: REFERRED SELF Confirmed By:Aaron Lopez
== END 2020-10-30 16:23 | disposition home or self-care (01) ==
LOC: ED 17:01 → 2N 17:01 → SUATTDRO 18:51 → 2N 22:13